=== PATIENT | male | born 1975 | race Hispanic/Latino ===

== ENCOUNTER 2017-08-24 10:12 | Outpatient (CLI) | payer MEDICAID | END 2017-08-24 10:13 | disposition home or self-care (01) | LOC: EDSEX 10:12 | PROVIDERS: ATTEND Family Medicine | DX: I69.991 Dysphagia following unspecified cerebrovascular disease (principal); J69.0 Pneumonitis due to inhalation of food and vomit | CPT/HCPCS: 74230; G8996-GN-CI; G8997-GN-CI; G8998-GN-CI ==

== ENCOUNTER 2020-05-28 09:38 | Day surgery (SDC) | payer MEDICARE, MEDICAID ==
[2020-05-26 14:22] VITALS: BMI 23.6
[~2020-05-28 09:38] MED LIST: PROPOFOL 200 MG/20 ML VIAL ONE
[2020-05-28] MEDS ORDERED: Midazolam HCl 2 mg/2 ml Vial ONE (11:09)
[2020-05-28] MEDS ORDERED: Ketamine 50 MG/ML (10ML VIAL) ONE (11:09)
--- NOTE | 2020-05-29 07:26 | OP ---
DATE OF PROCEDURE: 05/28/2020 PROCEDURE PERFORMED: Esophagogastroduodenoscopy with biopsy. PREPROCEDURE DIAGNOSIS: Flaherty esophagus. POSTPROCEDURE DIAGNOSES: 1. 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 2. No evidence of masses or lesions in the Flaherty's. 3. Hiatal hernia with proximal fold at 36 cm and Z-line at 32. RECOMMENDATIONS: 1. Await histopathology. 2. Continue PPI. 3. If these biopsies showed no dysplasia, we will discontinue Flaherty's screening as I think the risks outweigh the benefits at this point in time. The patient had issues with desaturation during procedure secondary to body habitus and underlying medical issues. DESCRIPTION OF PROCEDURE: After the patient was informed of the risks, benefits, and possible complications of endoscopy including perforation, reaction to medication, and aspiration, informed consent was obtained and the patient was brought to endoscopy suite and sedated in gradual fashion. Once he was comfortable, a bite block was placed in the incisural orifice. He had issues with desaturation into the upper 80s and had to have jaw thrust and suctioning to first complete the procedure. The scope was advanced to the esophagus, stomach, and second and third portions of the duodenum and slowly removed. There was no evidence of esophagitis, lesions, or masses. There was short-segment Flaherty's as noted above. Biopsies were taken in four quadrants in 2 different jars and submitted to Pathology for screening for dysplasia. The hernia was sliding-type. The stomach was normal in forward and retroflexed views except for the hernia. The scope was removed. The patient tolerated the procedure well. There were no complications. Job ID: [id number]
== END 2020-05-28 12:10 ==
LOC: SDC 09:38
PROVIDERS: ATTEND Internal Medicine Gastroenterology
PROC: 0DB58ZX Excision of Esophagus, Via Natural or Artificial Opening Endoscopic, Diagnostic (ICD-10-PCS; principal; 2020-05-28)
DX: K22.70 Barrett's esophagus without dysplasia (principal); K44.9 Diaphragmatic hernia without obstruction or gangrene; K21.9 Gastro-esophageal reflux disease without esophagitis; G80.0 Spastic quadriplegic cerebral palsy; M81.0 Age-related osteoporosis without current pathological fracture; Z79.899 Other long term (current) drug therapy
CPT/HCPCS: 88305; 88312; 88313; J2250; J2704